=== PATIENT | female | born 1980 | race African-American/Black ===

== ENCOUNTER 2024-09-06 19:41 | Emergency (ER) | payer OTHER ==
[~2024-09-06] VITALS: Ht 157.5 cm; Wt 100.2 kg
[~2024-09-06 19:41] MED LIST: MEDROL4 MG PO; MUCINEX DM ER1 EACH PO; NASACORT16.9 ML INH; ONDANSETRON ODT4 MG PO; PROVENTIL HFA6.7 GM INH
[2024-09-06 21:54] VITALS: PULSE 110; RESP 18; TEMP 100.5
[2024-09-06] MEDS: IBUPROFEN 600 MG TAB PO STA (22:00)
[2024-09-06] MEDS ORDERED: TAMIFLU75 MG PO (22:13)
[2024-09-06 22:30] VITALS: BP 147/77; PULSE 98; RESP 18; TEMP 100; O2SAT 99
== END 2024-09-06 22:30 | disposition home or self-care (01) ==
LOC: FSED 19:47
DX: R50.9 Fever, unspecified (principal); J10.1 Influenza due to other identified influenza virus with other respiratory manifestations; B34.9 Viral infection, unspecified; R05.9 Cough, unspecified; R53.81 Other malaise; I10 Essential (primary) hypertension; J45.909 Unspecified asthma, uncomplicated; Z11.52 Encounter for screening for COVID-19
CPT/HCPCS: 0223U; 83518; 87400; 99283